=== PATIENT | male | born 1990 | race Caucasian/White ===

== ENCOUNTER 2018-04-14 07:38 | Outpatient (CLI) | payer OTHER, SELFPAY ==
[2018-04-14 09:01] LABS: Abs Immature Grans 0.01 k/cumm (0.0-0.09); Absolute Basophil Count 0.04 k/cumm (0.0-0.2); Absolute Eosinophil Count 0.07 k/cumm (0.0-0.7); Absolute Lymphocyte Count 1.82 k/cumm (1.2-3.4); Absolute Monocyte Count 0.61 k/cumm (0.11-0.7); Basophils % 0.7; Eosinophils % 1.2; HCT 44.6 % (40.0-50.0); HGB 15.5 g/dL (13.5-17.5); Immature Grans % 0.2; Lymphocytes % 32.2; Mean Corp. HGB Concentration 34.8 g/dL (32.0-36.0); Mean Corpuscular Volume 89.2 fL (80-95); Mean Platelet Volume 10.9 fL (8.0-11.0); Monocytes % 10.8; Neutrophils % 54.9; Platelet Count 225 x1000/uL (130-400); White Blood Cell Count 5.65 k/cumm (4.4-10.8)
[2018-04-14 09:12] LABS: Cholesterol 259 mg/dL (50-200); HDL Cholesterol 50 mg/dL (40-60); LDL CHOLESTEROL 163 mg/dL (<100); Triglyceride 241 mg/dL (30-150)
== END 2018-04-14 07:58 ==
PROVIDERS: PCP Family Medicine; Visit Provider Internal Medicine
DX: Z00.00 Encounter for general adult medical examination without abnormal findings (principal); E78.5 Hyperlipidemia, unspecified
CPT/HCPCS: 36415; 80061; 83721; 85025

== ENCOUNTER 2019-05-05 02:43 | Outpatient (CLI) | payer OTHER, SELFPAY ==
[2019-05-05 07:31] LABS: ALT 21 U/L (16-63); Glucose 95 mg/dL (74-106)
[2019-05-05 07:46] LABS: Calculated LDL 151 mg/dL; Cholesterol 233 mg/dL (<200); HDL Cholesterol 51 mg/dL (40-60); Triglyceride 155 mg/dL (<150)
== END 2019-05-05 03:03 ==
PROVIDERS: PCP Family Medicine; Visit Provider Family Medicine
DX: Z00.00 Encounter for general adult medical examination without abnormal findings (principal); E78.5 Hyperlipidemia, unspecified; Z13.1 Encounter for screening for diabetes mellitus
CPT/HCPCS: 36415; 80061; 82947; 84460

== ENCOUNTER 2019-10-31 08:23 | Outpatient (CLI) | payer OTHER, SELFPAY ==
[2019-11-02 17:55] LABS: COVID-19 RT-PCR Result NEGATIVE (Negative)
== END 2019-10-31 08:43 ==
PROVIDERS: Nurse Practitioner Family; PCP Family Medicine; Visit Provider Nurse Practitioner Family
DX: Z11.59 Encounter for screening for other viral diseases (principal)
CPT/HCPCS: U0003

== ENCOUNTER 2020-05-12 09:47 | Outpatient (RCR) | payer OTHER, SELFPAY ==
[2020-05-12 10:55] LABS: Calculated LDL 160 mg/dL (<100); Cholesterol 265 mg/dL (<200); HDL Cholesterol 59 mg/dL (40-60); Triglyceride 232 mg/dL (<150); Vitamin B12 353 pg/mL (193-986)
[2020-05-12 12:35] LABS: Abs Immature Grans 0.02 10^3/uL (0.0-0.06); Absolute Basophil Count 0.05 10^3/uL (0.0-0.2); Absolute Eosinophil Count 0.05 10^3/uL (0.0-0.7); Absolute Lymphocyte Count 2.16 10^3/uL (1.2-3.4); Absolute Monocyte Count 0.53 10^3/uL (0.1-0.8); Absolute Neutrophil Count 4.61 10^3/uL (1.2-6.7); Basophils % 0.7; Eosinophils % 0.7; HCT 43.8 % (40.0-50.0); HGB 15.1 g/dL (13.5-17.5); Immature Grans % 0.3; Lymphocytes % 29.1; MCH 30.9 pg (27.0-33.0); MCHC 34.5 % (32.0-36.0); MCV 89.6 fL (80-95); MPV 10.3 fL (8.0-11.0); Monocytes % 7.1; Neutrophils % 62.1; Nucleated RBC 0 %; Platelet Count 248 10^3/uL (130-400); RBC 4.89 10^6/uL (4.36-5.78); RDW 11.4 % (11.8-14.1); WBC 7.42 10^3/uL (4.4-10.8)
== END 2020-05-23 23:59 | disposition home or self-care (01) ==
LOC: INF 09:47
PROVIDERS: PCP Family Medicine; Visit Provider Physician Assistant
DX: G47.8 Other sleep disorders (principal)
CPT/HCPCS: 36415; 80061; 82607; 85025

== ENCOUNTER 2022-07-31 08:47 | Outpatient (CLI) | payer OTHER, SELFPAY ==
[2022-07-31 08:14] LABS: Anion Gap 5.7 mmol/L (3-11); BUN 14 mg/dL (7-18); CO2 28.3 mmol/L (21.0-32.0); CREATININE 1.1 mg/dL (0.70-1.30); Calcium 8.7 mg/dL (8.5-10.1); Chloride 104 mmol/L (98-107); Glucose 103 mg/dL (74-106); Potassium 4.1 mmol/L (3.5-5.1); Sodium 138 mmol/L (136-145)
[2022-08-03 16:43] LABS: Apolipoprotein B, Serum 136 mg/dL; Beta VLDL Cholesterol Not Detected mg/dL (<15); Beta VLDL Triglycerides Not Detected mg/dL (<15); Cholesterol, Total, CDC 292 mg/dL; Chylomicron Cholesterol 2 mg/dL; Chylomicron Triglycerides 44 mg/dL; HDL Cholesterol, CDC 52 mg/dL (>=40); LDL Cholesterol 183 mg/dL; LDL Triglycerides 70 mg/dL (<=50); Lp(a) Cholesterol <5 mg/dL (<5); LpX Not detected; Triglycerides, CDC 290 mg/dL; VLDL Cholesterol 55 mg/dL (<30); VLDL Triglycerides 157 mg/dL (<120)
== END 2022-07-31 08:48 | disposition home or self-care (01) ==
LOC: LBO 08:48
PROVIDERS: PCP Family Medicine; Visit Provider Family Medicine
DX: Z00.00 Encounter for general adult medical examination without abnormal findings (principal); E78.00 Pure hypercholesterolemia, unspecified
CPT/HCPCS: 36415; 80048; 80061; 82172; 82664

== ENCOUNTER 2023-08-08 10:17 | Outpatient (REF) | payer OTHER, SELFPAY ==
--- NOTE | 2023-08-08 09:55 | SKI_PTH ---
PATIENT: Magdaleno Ordoñez III LOC: [facility] U#:[id number] AGE/SX: 32/M ROOM: RE08/08/[address]: Estrellita Russo : 1990 BED: DIS: 08/08/2023 SPEC #: [id number] RECD: 08/08/23 13:01 STATUS: SHUKRI RERonald #: [id number] RIVER: 08/08/23 09:[address]: Estrellita Russo DEPT: Surgical Specimen RECD BY: Payton Avila Tissues: 1 - SKIN BIOPSY(SHAVE/PUNCH) Procedures: SKIN LEVEL 4 Comments: [id number]
== END 2023-08-08 10:18 | disposition home or self-care (01) ==
LOC: LBN 10:17
PROVIDERS: PCP Family Medicine; Visit Provider Family Medicine
DX: D22.5 Melanocytic nevi of trunk (principal); L98.8 Other specified disorders of the skin and subcutaneous tissue
CPT/HCPCS: 88305

== ENCOUNTER 2024-04-28 11:06 | Outpatient (CLI) | payer OTHER, SELFPAY ==
[2024-04-28 08:43] LABS: Calculated LDL 175 mg/dL (<100); Cholesterol 260 mg/dL (<200); HDL Cholesterol 65 mg/dL (40-60); Triglyceride 102 mg/dL (<150)
== END 2024-04-28 11:07 | disposition home or self-care (01) ==
LOC: LBO 11:06
PROVIDERS: PCP Family Medicine; Visit Provider Family Medicine
DX: Z13.6 Encounter for screening for cardiovascular disorders (principal); E78.2 Mixed hyperlipidemia
CPT/HCPCS: 36415; 80061